=== PATIENT | female | born 1945 | race Caucasian/White ===

== ENCOUNTER → 2020-07-24 | Outpatient (CLI) | payer OTHER ==
[~2020-07-24] MED LIST: MIRAPEX1 MG PO
== END ==
LOC: SJCVC 12:42
PROVIDERS: ATTEND Internal Medicine Cardiovascular Disease
DX: I44.2 Atrioventricular block, complete (principal); E11.22 Type 2 diabetes mellitus with diabetic chronic kidney disease; I12.9 Hypertensive chronic kidney disease with stage 1 through stage 4 chronic kidney disease, or unspecified chronic kidney disease; N18.30 Chronic kidney disease, stage 3 unspecified; I44.0 Atrioventricular block, first degree; G47.33 Obstructive sleep apnea (adult) (pediatric); E66.01 Morbid (severe) obesity due to excess calories; I49.5 Sick sinus syndrome; Z88.5 Allergy status to narcotic agent; Z88.8 Allergy status to other drugs, medicaments and biological substances; Z98.890 Other specified postprocedural states; Z79.899 Other long term (current) drug therapy; Z87.891 Personal history of nicotine dependence

== ENCOUNTER 2020-07-29 10:55 | Inpatient (IN) | payer OTHER ==
[~2020-07-29] VITALS: Ht 160 cm; Wt 127.3 kg
[2020-07-29 12:40] VITALS: BP 154/78
--- NOTE | 2020-07-29 13:09 | EKG ---
[place] [address] [facility] [place] [address] ELECTROCARDIOGRAM REPORT Name: JOHN NOE Room #: 200-I ADM IN M.R.#: [id number] Admission: 07/29/20 Attend Phys: Gilberto Toro MD, Discharge: Date of : 49 Report #: [id number] [facility] Test Date: 2020-07-29 Test Time: 12:53:14 Pat Name: JOHN NOE Department: Room: Gender: F Gis Engineer[facility] : 1945 Requested By: Gilberto Toro Order Number: [id number] MD: Carlos Zuleta Measurements Intervals [place] Rate: 65 P: -39 ND: 286 QRS: -7 QRSD: 99 T: 32 QT: 395 QTc: 411 Interpretive Statements Sinus rhythm Prolonged ND interval Left ventricular hypertrophy Anterior Q waves, possibly due to LVH Compared to ECG 06/15/2008 07:23:37 First degree AV block now present Left ventricular hypertrophy now present Q waves now present Electronically Signed On 07-29-2020 13:09:20 CDT by Carlos Zuleta [email or web address] <ELECTRONICALLY SIGNED> By: Carlos Zuleta MD 07/29/20 1309 1253 1253 Carlos Zuleta MD /EPI
--- NOTE | 2020-07-29 14:31 | NUR ---
PT ARRIVED FROM [facility] APPROX 1245 VIA AMBULANCE. VSS. PT A&OX4, VSS DENIES CHEST PAIN. DENIES SOB. PT UP SBA DO WELL. NSR MONITOR. ADMISSION COMPLETE. TELE STRIP PRINTED AND DOCUMENTED. PLAN FOR CATH IN AM. CONSENTS SIGNED. RN TO FOLLOW POC.
[2020-07-29 14:34] LABS: CHOLESTEROL 199 mg/dL (<200); HDL CHOLESTEROL 70 mg/dL (>40); LDL CHOLESTEROL 94 mg/dL (<100); TC:HDL 2.8 Ratio (Not establshd); TRIGLYCERIDE 175 mg/dL (<150); VLDL 35 mg/dL (<40)
[2020-07-29] MEDS ORDERED: MIRAPEX1 MG PO (17:44)
[2020-07-29 19:44] VITALS: BP 108/48
[2020-07-29 23:55] VITALS: BP 111/44
[2020-07-30 02:53] LABS: HEMATOCRIT 36.3 % (37.0-47.0); HEMOGLOBIN 11.9 gm/dL (12.0-15.0); MCH 30.1 pg (26.0-34.0); MCHC 32.8 g/dL (28.0-37.0); MCV 91.8 fL (80.0-100.0); RBC 3.96 mil/uL (4.20-5.00); RDW 13.6 % (10.5-14.5); WBC 5.2 thou/uL (4.0-11.0)
[2020-07-30 03:21] LABS: CALCIUM 8.9 mg/dL (8.5-10.1); CREATININE 1.2 mg/dL (0.6-1.0); POTASSIUM 4.1 mmol/L (3.5-5.1)
--- NOTE | 2020-07-30 03:21 | NUR ---
SLEPT PART OF SHIFT. UP IN ROOM AD TASH WITH STEADY GAIT. WORKING ON GOALS AND PLAN OF CARE FOR NOC. NPO PAST MN FOR AM HEART CATH. DENIES COMPLAINTS OF CHEST PAIN OR SHORTNESS OF AIR THIS SHIFT. STATES IS AWAKE ALOT AT NOC AT HOME. DENIES CONCERNS. CONTINUE TO ASSES.
[2020-07-30 03:30] VITALS: BP 139/51
[2020-07-30 07:16] VITALS: BP 148/62
--- NOTE | 2020-07-30 11:03 | NUR ---
PT IS AXOX4, PLEASANT. VSS, AFEBRILE, SR/1AVB ON MONITOR. PT HAS BEEN NPO SINCE MIDNIGHT FOR CARDIAC CATH THIS AM. CONSENT IN CHART. PT DOWN TO CARDIAC CATH AT 0800. SITE C/D/I, NO HEMATOMA. POST CATH VS. LOW FALL PRECAUTIONS.
[2020-07-30 11:32] VITALS: BP 145/56
--- NOTE | 2020-07-30 15:09 | NUR ---
PT RESTING COMFORTABLY. BEDREST WAS STOPPED AT 1230. PT WAS ABLE TO GET OUT OF BED TO USE THE COMMODE WITH STAND BY ASSIST. RIGHT GROIN SITE IS NON-TENDER, DRESSING IS C/D/I, NO S/S OF HEMORRAGE OR INFECTION. PT AFEBRILE, ADEQUATE UOP, 1 BM, APPROPRIATE APPETITE. 1ST DEGREE HEART BLOCK ON TELEMETRY, PT ASYMPTOMATIC. PT WILL BE NPO AT MIDNIGHT. AND PLAN TO HAVE PACEMAKER PLACEMENT TOMORROW AM. PT AND FAMILY AT BEDSIDE HAVE BEEN UPDATED AND EDUCATED ON PT CONDITION AND POC. PT PROGRESSING TOWARDS POC.
[2020-07-30 15:43] VITALS: BP 131/55
[2020-07-30 19:10] VITALS: BP 143/66
[2020-07-30 23:37] VITALS: BP 138/51
[2020-07-31 04:10] VITALS: BP 133/49
--- NOTE | 2020-07-31 04:32 | NUR ---
RESTED QUIETLY MOST OF SHIFT. UP AD TASH IN ROOM. HS BATH DONE STATES WILL DO AGAIN LATER THIS AM. WORKING ON GOALS AND PLAN OF CARE FOR NOC. NPO FOR PLANS FOR PACEMAKER PLACEMENT TODAY. DENIES COMPLAINTS OF PAIN OR SHORTNESS OF AIR. TELEMETRY PATCHES TO BACK. CONTINUE TO ASSES.
[2020-07-31 07:19] VITALS: BP 126/76
--- NOTE | 2020-07-31 10:24 | NUR ---
PT ALERT AND ORIENTED TIMES FOUR. VSS. SR ON TELE. PT DENIES ANY PAIN/SOA. PT TOLERATES MEDS, BUT CONTINUES TO BE NPO FOR SURGERY TODAY. PT UP AB TASH WITH STEADY GAIT. FAMILY AT BEDSIDE. WILL CONTINUE TO MONITOR.
[2020-07-31 19:37] VITALS: BP 125/49
--- NOTE | 2020-08-01 03:50 | NUR ---
ASSESSMENTS CHARTED, MEDS CHARTED, PATIENT RETURNED FROM [employer] [facility] WITH HER LEFT EYE VERY IRRITATED. AFTER EYE DROPS, A COOL WET CLOTH, THE LIGHTS OUT, AT O300 SHE IS PAIN FREE. PLAN OF CARE IS TO INTERRAGATE HER NEW PACEMAKER, THEN GO HOME IN THE MORNING IF ALL ELSE IS GOOD.
[2020-08-01 03:59] VITALS: BP 135/51
[2020-08-01 07:30] VITALS: BP 128/58
[2020-08-01] MEDS ORDERED: LIPITOR40 MG PO (07:40)
--- NOTE | 2020-08-01 08:23 | NUR ---
CM REVIEWED CHART AND MET WITH PATIENT. PT IS S/P PACEMAKER AND IS A POSSIBLE DISCHARGE TODAY IF CXR IS OK. PT REPORTS THAT SHE LIVES IN A HOUSE ALONE IN [place]. PT REPORTS SHE IS FULLY INDEPENDENT WITH ADLS AND HAS A CANE SHE USES AT TIMES FOR LONG DISTANCES. PT REPORTS FAMILY LIVES RIGHT ACROSS [address] FROM HER. PT REPORTS THAT SHE HAD HH YEARS AGO AFTER A SURGERY BUT UNSURE THE AGENCY. PT REPORTS HER PCP IS OUT OF THE [place] [facility] BUT CANNOT RECALL [facility] LAST NAME. CM DISCUSSED ROLE. PT DOES NOT ANTICIPATE HAVING ANY NEEDS FROM CM.
--- NOTE | 2020-08-01 11:30 | NUR ---
PT ALERT AND ORIENTED TIMES FOUR. VSS. SR ON TELE. PT DENIES PAIN/SOA. PT TOLERATES MEDS AND MEALS. PT UP AB TASH. PLAN FOR DISCHARGE TODAY. WILL CONTINUE TO MONITOR.
[2020-08-01 12:13] VITALS: BP 131/49
--- NOTE | 2020-08-01 12:59 | CATHLAB ---
[facility] [place] [address] INVASIVE PROCEDURE REPORT Name: JOHN NOE Room #: 200-I ADM IN .R.#: [id number] Admission: 07/29/20 Attend Phys: Gilberto Toro MD, Discharge: Date of : 49 Report #: [id number] THIS REPORT FOR: cc: FAM - Family physician unknown FAM - Family physician unknown Gilberto Toro MD [facility] ~ APPROVED REPORT Study performed: 07/30/2020 08:05:38 Patient Details Patient Status: In-Patient Room #: 200 The patient is a 74 year-old female Event Personnel Gilberto Toro Clay Miller, Katty Chawla RTKeyla Monitor, Shandra Guan Ramos, Dexter RN senior data quality analyst Performed Art Access - R femoral artery* Left Heart Cath w/or w/o Coronaries [id number] [facility] Aortogram Abdominal Peripheral Angio 065027 Hemostasis w/ Mynx 07476 Initial Mod Sed Same Phys/QHP Gr [id number] 47573 Mod Sed Same Phys/QHP Ea [id number] Procedure Narrative The Right Groin^ was infiltrated with 1% Lidocaine subcutaneous anesthesia. A PINNACLE 6FR Sheath #[id number] sheath was inserted into the RFA^. Coronary angiography was performed using coronary diagnostic catheters. The right coronary system was accessed and visualized with a JR4 catheter. The left coronary system was accessed and visualized with a JL4 catheter. The left ventricle was accessed and visualized with a PIGTAIL catheter. Left ventriculogram was performed in 30 degree projection. An aortogram of the abdominal aorta was performed. Pre-demployment femoral angiogram was performed . Closure device was deployed with a Fr MYNXGRIP 6/7F #[id number]. The patient tolerated the procedure well and there were no complications associated with the procedure. There was no hematoma. Intraoperative Conscious Sedation Sedation start time: 8:56 Case end Time: 9:24 Fentanyl 50 mcg Versed 1 mg Fluoro Time: 1.10 minutes [facility] [address] [place] [address] INVASIVE PROCEDURE REPORT Name: KUSUMJOHN Baez Room #: 200-I [facility].#: [id number] Admission: 07/29/20 Attend Phys: Gilberto Toro, Discharge: Date of : 49 Report #: [id number] Dose: DAP 6672.60 cGycm2 775 mGy Contrast Type and Amount: Visipaque 85 ml Hemodynamics The aortic pressure is 130/53 mmHg with a mean of 43 mmHg. The left ventricular pressure is 141/1 mmHg with a mean of mmHg. The left ventricular end diastolic pressure is 14 mmHg. Conclusion 1. Normal left jugular size and systolic function EF 60%. #2 abdominal aortogram revealing normal caliber aorta no evidence of aneurysm brisk distal flow. #3 left main short free of disease giving rise to LAD and circumflex. #4 the LAD is diffusely diseased distally extends around the apex. No occlusive disease. #5 small circumflex OM no significant disease. 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 Giving rise to the PDA PREMA. Recommendations and plan: Continue aggressive risk factor modification there is no indication for coronary intervention. EP service will now evaluate for permanent pacemaker. <ELECTRONICALLY SIGNED> By: Gilberto Toro MD, FACC 08/01/20 1259 1259 1259 Gilberto Toro MD, FACC /INF
[2020-08-01 13:59] VITALS: BP 131/49
== END 2020-08-01 14:36 | disposition home or self-care (01) | DRG 243 ==
LOC: 2N 10:55
PROVIDERS: Nurse Practitioner Adult Health; ADMIT Internal Medicine Cardiovascular Disease; ATTEND Internal Medicine Cardiovascular Disease
DX: I49.5 Sick sinus syndrome (principal); Z68.42 Body mass index [BMI] 45.0-49.9, adult; I25.110 Atherosclerotic heart disease of native coronary artery with unstable angina pectoris; I44.2 Atrioventricular block, complete; Z20.822 Contact with and (suspected) exposure to COVID-19; I10 Essential (primary) hypertension; E78.5 Hyperlipidemia, unspecified; G47.33 Obstructive sleep apnea (adult) (pediatric); E11.9 Type 2 diabetes mellitus without complications; E66.9 Obesity, unspecified; J45.909 Unspecified asthma, uncomplicated; I08.1 Rheumatic disorders of both mitral and tricuspid valves; K21.9 Gastro-esophageal reflux disease without esophagitis; Z88.6 Allergy status to analgesic agent; Z87.891 Personal history of nicotine dependence; Z98.84 Bariatric surgery status; Z88.5 Allergy status to narcotic agent; Z88.8 Allergy status to other drugs, medicaments and biological substances
CPT/HCPCS: 10081; 62110; 62900; 70005